=== PATIENT | female | born 1955 | race Caucasian/White ===

== ENCOUNTER 2016-04-28 09:00 | Inpatient (IN) | payer BC ==
[~2016-04-28] VITALS: Ht 152.4 cm; Wt 71.8 kg
--- NOTE | ~2016-04-28 | OR ---
PATIENT'S NAME: SUSHIL PARTIDA [facility] AGE: 61 Y [address] ROOM: [place] [id number] LOCATION: GPCU ADMIT DATE: 05/05/2016 OR/Procedure Report DISCHARGE DATE: FAMILY PHYSICIAN: Álvaro Sibley MD ATTENDING PHYSICIAN: NAVJOT MENG SURGEON: Navjot Meng MD [employer]ER [employer] MAINTENANCE: DATE OF PROCEDURE: 05/05/2016 PREOPERATIVE DIAGNOSIS: High-grade left internal carotid artery stenosis. POSTOPERATIVE DIAGNOSIS: High-grade left internal carotid artery stenosis. PROCEDURE: Left carotid endarterectomy with bovine pericardial patch. PIPELINE TECHNICIAN: YANDEL Deluca. ANESTHESIA: General. ESTIMATED FLUID LOSS: 200 mL. OPERATIVE FINDINGS: High-grade left ICA stenosis. Neurologically intact at the end of the case. DESCRIPTION OF PROCEDURE: The patient was brought to the operating room, placed supine on the operating table, and prepped and draped in a sterile manner. Preoperative time-out was performed. We made a standard incision along the anterior border of the sternocleidomastoid muscle, transected the platysma, dissected the soft areolar tissue along the anterior border of the sternocleidomastoid muscle, dissected out the internal jugular. Identified and ligated and transected the facial vein. Retracted the internal jugular laterally. Dissected out the common, the internal, the external, and the superior thyroid. We gave 5000 units of heparin. We clamped on all 3 major vessels. A clip was placed on the superior thyroid, which was removed at the end of the case. We made an arteriotomy with our 11 blade and extended it from the common to the internal with Flores scissors. We then passed a 5 x 3 Sundt shunt, which flow was confirmed with the use of a Doppler. We then removed the plaque in its entirety, finishing in the orifice of the external, which was probed to remove any further plaque. We then did a standard bovine pericardial patch using 2 running 6-0 [place] sutures. We removed the shunt, flushed both the common and the internal, and then completed the anastomosis. We removed the clamps. There was excellent flow into all 3 vessels, which was confirmed with the use of Doppler. Heparin was reversed with the use of protamine. Deep layers were closed with 2-0 and 3-0 Vicryl. Skin was closed with running 4-0 Monocryl. The patient awoke in the operating room, able to PATIENT'S NAME: SUSHIL PARTIDA [facility] AGE: 61 Y [address] ROOM: [id number] [place] [id number] LOCATION: [facility] ADMIT DATE: 05/05/2016 OR/Procedure Report DISCHARGE DATE: FAMILY PHYSICIAN: Álvaro Sibley MD ATTENDING PHYSICIAN: NAVJOT MENG move all extremities and say her name. NAVJOT MENG MD FKM/modl /[id number] d: 05/05/16 2135 t: 05/08/16 1303, OPERATIVE SUMMARY
[~2016-04-28 09:00] MED LIST: ADVIL200 MG PO; ATORVASTATIN CA10 MG PO; AVAPRO150 MG PO; CORDARONE,PACE200 MG PO; DULERA 200 MCG/51 EA INH; EQUATE FIBER PO; FEOSOL325 MG PO; K-TAB 10MEQ10 MEQ PO; LASIX40 MG PO; LOPRESSOR12.5 MG/0. PO; MAG-OX-400(241400 MG PO; NORCO 5-325 MG1 TAB PO; NORCO 5-325 TA1 EACH PO; OXYGEN M-15 INH; SPIRIVA HANDIHA1 KIT INH; XARELTO20 MG PO; ZESTRIL2.5 MG PO
[2016-04-28] MEDS ORDERED: MIRALAX17 GM PO (09:27)
[2016-05-05] MEDS ORDERED: OXYGEN M-15 NS ×2 (08:53→08:55)
[2016-05-05 08:56] LABS: BASOPHIL # 0.1 K/uL (0.0-0.2); BASOPHIL % 0.9 %; EOSINOPHIL # 0.2 K/uL (0.0-0.5); EOSINOPHIL % 2.2 %; HEMOGLOBIN 11.2 g/dL (10.0-15.0); IMMATURE GRANULOCYTE % 0.3 %; LYMPHOCYTE # 1.4 K/uL (0.8-4.0); LYMPHOCYTE % 20.6 %; MCH 32.2 pg (27.0-34.0); MCHC 31.8 gm/dL (32.0-36.5); MCV 101.1 fl (83.0-98.0); MONOCYTE # 0.8 K/uL (0.0-1.0); MONOCYTE % 11.6 %; MPV 8.7 fl (9.4-12.4); NEUTROPHIL # (ANC) 4.5 K/uL (1.8-7.8); NEUTROPHIL % 64.4 %; NRBC % 0 /100WBC (0-0.00); PLATELET COUNT 276 K/uL (150-450); RBC 3.48 M/uL (3.50-5.50); WBC 6.9 K/uL (4.0-11.0)
[2016-05-05 09:03] LABS: HEMATOCRIT 35.2 % (33.0-46.0)
[2016-05-05 09:06] LABS: PROTIME 10.5 SECONDS (9.6-11.1)
[2016-05-05 09:15] LABS: CALCIUM 8.3 mg/dL (8.5-10.5); CREATININE 1.1 mg/dL (0.5-1.1); TOTAL BILIRUBIN 0.5 mg/dL (0.0-1.5); TOTAL PROTEIN 6.2 g/dL (6.0-8.4)
[2016-05-06 06:24] LABS: ANION GAP 11.6 (10.0-19.0); CALCIUM 7.8 mg/dL (8.5-10.5); POTASSIUM 4.6 mMol/L (3.7-5.1)
[2016-05-06 06:36] LABS: BASOPHIL % 0.1 %; HEMATOCRIT 34.2 % (33.0-46.0); HEMOGLOBIN 10.7 g/dL (10.0-15.0); IMMATURE GRANULOCYTE # 0.1 K/uL (0.0-0.3); IMMATURE GRANULOCYTE % 0.4 %; LYMPHOCYTE # 0.7 K/uL (0.8-4.0); LYMPHOCYTE % 5.3 %; MCH 32.1 pg (27.0-34.0); MCHC 31.3 gm/dL (32.0-36.5); MCV 102.7 fl (83.0-98.0); MONOCYTE # 1.3 K/uL (0.0-1.0); MONOCYTE % 9.7 %; MPV 9.2 fl (9.4-12.4); NEUTROPHIL # (ANC) 11.4 K/uL (1.8-7.8); NEUTROPHIL % 84.5 %; NRBC % 0 /100WBC (0-0.00); PLATELET COUNT 310 K/uL (150-450); RBC 3.33 M/uL (3.50-5.50); RDW-CV 13.1 % (11.9-14.6); WBC 13.5 K/uL (4.0-11.0)
== END 2016-05-06 13:34 | disposition disaster alternative care site (69) | DRG 38 ==
LOC: GPCU 05-05 08:03
PROVIDERS: ADMIT Surgery Vascular Surgery
DX: I65.22 Occlusion and stenosis of left carotid artery (principal); I50.32 Chronic diastolic (congestive) heart failure; G47.36 Sleep related hypoventilation in conditions classified elsewhere; J44.9 Chronic obstructive pulmonary disease, unspecified; I48.0 Paroxysmal atrial fibrillation; I10 Essential (primary) hypertension; Z87.891 Personal history of nicotine dependence; Z79.01 Long term (current) use of anticoagulants
CPT/HCPCS: J0690; J1100; J1644; J1650; J2001; J2250; J2405; J2720; J3480; J7030; J7050